=== PATIENT | male | born 1960 | race Two or more races ===

== ENCOUNTER 2022-05-16 18:30 | Emergency (ER) | payer OTHER ==
[~2022-05-16] VITALS: Ht 167.6 cm; Wt 81.6 kg
[2022-05-16] MEDS ORDERED: CYCLOBENZAPRINE 10 MG TABLET ONE ×2 (19:19→19:31)
[2022-05-16] MEDS ORDERED: KETOROLAC TROMETHAMINE INJ 30 MG/ML VIAL ONE ×2 (19:19→19:30)
[2022-05-16] MEDS: KETOROLAC TROMETHAMINE INJ 30 MG/ML VIAL IM ONE (19:25)
[2022-05-16] MEDS: CYCLOBENZAPRINE 10 MG TABLET PO ONE (19:25)
--- NOTE | 2022-05-16 20:01 | NUR ---
PT IN BED 6A/O X4 ON ROOM AIR. C/O 11/27 R HIP PAIN X4 DAYS
--- NOTE | 2022-05-16 20:01 | NUR ---
Daria myrick in [facility] - 05/16/22 at 2002 by FAN MOVE SHEET SUBMITTED
[2022-05-16] MEDS ORDERED: KETO10TA2 PO (21:21)
[2022-05-16] MEDS ORDERED: TRAM-351 PO (21:21)
[2022-05-16] MEDS ORDERED: CYCL5TAB PO (21:21)
[2022-05-16 22:42] VITALS: BP 164/83
== END 2022-05-16 22:43 | disposition home or self-care (01) ==
LOC: ER 18:33
DX: M54.42 Lumbago with sciatica, left side (principal); E11.9 Type 2 diabetes mellitus without complications; I10 Essential (primary) hypertension; Z79.899 Other long term (current) drug therapy
CPT/HCPCS: 99283; 96372; 73090; J1885 ×2